=== PATIENT | female | born 1995 | race Hispanic/Latino ===

== ENCOUNTER 2016-09-28 13:42 | Emergency (ER) | payer OTHER ==
[~2016-09-28] VITALS: Ht 152.4 cm; Wt 57.7 kg
[2016-09-28 13:46] VITALS: BP 96/62; PULSE 82; RESP 14; O2SAT 98
== END 2016-09-28 14:05 | disposition left against medical advice (07) ==
LOC: SED 13:42
DX: Z53.21 Procedure and treatment not carried out due to patient leaving prior to being seen by health care provider (principal)

== ENCOUNTER 2017-02-09 02:02 | Inpatient (IN) | payer OTHER ==
[~2017-02-09] VITALS: Ht 142.2 cm; Wt 61.2 kg
[2017-02-09] MEDS ORDERED: Sodium Chloride LOK Flush 10 mL Syringe IVFLUSH PRN (02:50)
[2017-02-09] MEDS ORDERED: Hemorrhage Kit, Post Partum XX ONE (02:50)
[2017-02-09] MEDS ORDERED: Carboprost 250 mCg/mL Inj IM PRN (02:50)
[2017-02-09] MEDS ORDERED: fentaNYL-PF 50 mCg/mL 2 mL Inj IVPUSH PRN (02:50)
[2017-02-09] MEDS ORDERED: Oxytocin 30 Units/500 mL LR 30 UNITS in IV Premix 1 EACH IV PRN ×2 (02:50→07:55)
[2017-02-09] MEDS ORDERED: Methylergonovine 0.2 mg/mL Inj IM PRN (02:50)
[2017-02-09] MEDS ORDERED: Oxytocin 10 Unit/mL Inj IM PRN (02:50)
[2017-02-09 03:03] LABS: Mean Corpuscular Hemoglobin 25.1 pg (27.0-35.0)
[2017-02-09] MEDS: Lactated Ringer's 1,000 ML IV PRN ×2 (07:29→11:28)
[2017-02-09] MEDS ORDERED: EPHEDrine/NS 5 mg/mL 5 mL Syringe ONE (13:43)
[2017-02-09] MEDS ORDERED: fentaNYL 2 mCg/mL-Bupiv 0.125% 100 ML EPIDURAL SCH (15:35)
[2017-02-09] MEDS ORDERED: EPHEDrine Sulfate 50 mg/mL Inj IVPUSH PRN (15:35)
[2017-02-09] MEDS ORDERED: Atropine 1 mg/10 mL (Code) Syringe IVPUSH PRN (15:35)
[2017-02-09] MEDS ORDERED: Ondansetron 2 mg/mL 2 mL Inj IVPUSH PRN (15:35)
[2017-02-09] MEDS ORDERED: Phenylephrine/NS-PF 100 mCg/mL 5 mL Syringe IVPUSH PRN (15:35)
[2017-02-09] MEDS ORDERED: Lactated Ringer's 500 ML IV ONE (15:35)
--- NOTE | 2017-02-09 15:38 | PCM.HPANE ---
Patient Data Surgeon Admitting Provider:Tee Harvey MD Attending Provider:Tee Harvey MD Primary Care Physician:Tee Harvey MD Other Provider:Jose Felix Anesthesia Reason for Visit Term Labor Check TERM LABOR CHECK Ht/WT & BMI Body Mass Index Allergies Coded Allergies: No Known Allergies (Unverified , 09/28/16) Past Anesthesia History Anesthesia History: Denies:: Abnormal Airway, Anesthesia Reactions, Difficult Intubation, Fam Anesthesia Reaction, Fam Malignant Hypertherm, Malignant Hyperthermia Diabetes History Hx Diabetes?: No Medications Hypertension Medication: No Home Meds Incl Beta Ksenia: No History History of ENT Problems?: No HEENT History: Denies:: Abnormal Airway Cataracts Difficult Intubation Dysphagia Glaucoma Hearing Problem Sinus Problem TMJ Denture Type: None Teeth Condition: Within Normal Limits Hx of Heart Problems?: No Cardiovascular History: Denies:: AICD Abdominal Aortic Aneurism Atrial Fibrillation Cardiac Surgery Chest Pain Congestive Heart Failure Coronary Artery Disease Edema Heart Murmur Hypertension Irregular Heartbeat Pacemaker Peripheral Vascular Rheumatic Fever Thrombophlebitis Valvular Heart Disease Hx of Respiratory Problem?: No Respiratory History: Denies:: Asthma COPD Chest Surgery Cough Dyspnea Emphysema Hemoptysis Oxygen Administration Pneumonia Pulmonary Embolism Tuberculosis Use of C-PAP Machine Use of Inhalers / NEBS Hx Neurologic Problems?: No Hx of GI Problems?: No Hx of Problems?: No Female Hx: Positive for:: Currently Hx Musculoskeletal Problems?: No Hx of Psycho/Social Problems?: No Hx Surgeries?: No Hx Any Other Health Problems?: No Smoking Status: Never Smoker Have You Smoked inLast 12 mo: No Stop/Bang Treated for Sleep Apnea?: No Do You Have a CPAP Machine?: No LEIA Risk Assessment: Low Risk, <3 Yes Risk Assessment Category Category 1A: Patient has history of documented sleep apnea, and HAS NOT received any narcotic, sedative or anesthesia administration during this stay. Category 1B: Patient has history of documented sleep apnea, and HAS received any narcotic , sedative or anesthesia administration during this stay Category 2: Patient has SUSPECTED Obstructive Sleep Apnea, and HAS received any narcotic , sedative or anesthesia administration during this stay. Category 3: Patient has SUSPECTED Obstructive Sleep Apnea and HAS NOT received narcotic, sedative or anesthesia administration during this stay. Category 4: Outpatient in Procedural Areas with known sleep apnea or who screen positive for High Risk via the STOP/BANG questionnaire. Exam Exam General Appearance: Oriented X3 HEENT/AIRWAY: MP 2 Lungs: Normal Air Movement Heart: Regular Rate/Rhythm Meds/Labs/Diagnostics Labs Test 02/09/17 02:40 White Blood Count 8.8th/mm3 (3.8-10.1) Red Blood Count 4.23mil/mm3 (3.90-5.20) Hemoglobin 10.6g/dL (12.0-15.6) Hematocrit 33.0% (35.0-46.0) Mean Corpuscular Volume 78.0fL (81-100) Mean Corpuscular Hemoglobin 25.1pg (27.0-35.0) Mean Corpuscular Hemoglobin Concent 32.1% (32.0-37.0) Red Cell Distribution Width 17.3% (12.3-15.4) Platelet Count 263bil/L (150-400) Plan Impression Patient chart reviewed, patient interviewed and anesthestic plan with risks, benefits, and alternatives discussed, and informed consent obtained. ASA Physical Status: ASA2 Mod Systemic Disease Anesthetic Plan: Epidural Bene/Risks/Altern/Consents: Yes HP Complete Prior to Induction: Yes Kevon Muir MD February 09, 2017 15:37
[2017-02-09] MEDS: Lactated Ringer's 1,000 ML IV SCH ×2 (16:23→23:35)
[2017-02-09] MEDS: Sodium Chloride LOK Flush 10 mL Syringe IVFLUSH SCH (19:00)
[2017-02-09] MEDS ORDERED: Acetaminophen IV 1,000 MG in IV Premix 1 EACH IV ONE (22:50)
[2017-02-09] MEDS ORDERED: CeFAZolin Inj 2 GM in IV Premix 1 EACH IV ONE (23:40)
[2017-02-09] MEDS ORDERED: Sodium Citrate-Citric Acid 15 mL Solution PO SCH (23:40)
[2017-02-09] MEDS ORDERED: Sodium Citrate-Citric Acid 15 mL Solution ONE (23:41)
[2017-02-09] MEDS ORDERED: Morphine PF 1 mg/mL 10 mL Inj ONE (23:49)
[2017-02-10] MEDS ORDERED: EPHEDrine Sulfate 50 mg/mL Inj IVPUSH PRN (00:20)
[2017-02-10] MEDS ORDERED: Atropine 0.4 mg/mL Inj IV PRN (00:20)
[2017-02-10] MEDS ORDERED: Dexamethasone 4 mg/mL Inj IVPUSH PRN (00:20)
[2017-02-10] MEDS ORDERED: fentaNYL-PF 50 mCg/mL 2 mL Inj IVPUSH PRN (00:20)
[2017-02-10] MEDS ORDERED: Morphine PF 1 mg/mL 10 mL Inj EPIDURAL ONE (00:20)
[2017-02-10] MEDS ORDERED: Ondansetron 2 mg/mL 2 mL Inj IVPUSH PRN (00:20)
[2017-02-10] MEDS ORDERED: HYDROmorphone 1 mg/mL Inj IVPUSH PRN (00:20)
[2017-02-10] MEDS ORDERED: MetoCLOpramide 5 mg/mL 2 mL Inj IVPUSH PRN (00:20)
[2017-02-10] MEDS ORDERED: Phenylephrine/NS-PF 100 mCg/mL 5 mL Syringe IVPUSH PRN (00:20)
[2017-02-10] MEDS: Sodium Chloride LOK Flush 10 mL Syringe IVFLUSH SCH ×3 (00:30→16:30)
[2017-02-10] MEDS: Lactated Ringer's 1,000 ML IV SCH ×5 (01:07→17:07)
[2017-02-10] MEDS ORDERED: Oxytocin 10 Unit/mL Inj IM PRN (01:10)
[2017-02-10] MEDS ORDERED: Hemorrhage Kit, Post Partum XX ONE (01:10)
[2017-02-10] MEDS ORDERED: Methylergonovine 0.2 mg/mL Inj IM PRN (01:10)
[2017-02-10] MEDS ORDERED: HYDROcodone-APAP 5-325 mg Tablet PO PRN (01:10)
[2017-02-10] MEDS ORDERED: Acetaminophen IV 1,000 MG in IV Premix 1 EACH IV PRN (01:10)
[2017-02-10] MEDS ORDERED: Sodium Chloride LOK Flush 10 mL Syringe IVFLUSH PRN (01:10)
[2017-02-10] MEDS ORDERED: Oxytocin 30 Units/500 mL LR 30 UNITS in IV Premix 1 EACH IV PRN (01:10)
[2017-02-10] MEDS ORDERED: Carboprost 250 mCg/mL Inj IM PRN (01:10)
[2017-02-10] MEDS ORDERED: LANOlin HPA 7 Gm Ointment TOPICAL PRN (01:10)
--- NOTE | 2017-02-10 01:14 | PCM.ANEP1 ---
Post Anesthesia PACU Phase 1 Assessment Anesthetic Administered: Epidural Level of Alertness: Awake, talking Pain: No Nausea or Vomiting: No CV Function and Hydration: Yes Airway Device: Lungs: Normal Air Movement PACU Phase 2 Assessment Patient Instructions Provided: N/A Kevon Muir MD February 10, 2017 01:13
[2017-02-10] MEDS ORDERED: GENTAMICIN IV ONE (01:30)
[2017-02-10] MEDS ORDERED: SODIUM CHLORIDE 0.9% IV ONE (01:30)
--- NOTE | 2017-02-10 02:49 | HP ---
[address] [address] HISTORY AND PHYSICAL PATIENT: MINDY JACOBSON : 1995 MR#: [id number] ADMIT: 02/09/2017 JOB ID: [id number] HISTORY OF PRESENT ILLNESS: This is a 22-year-old female, 1, para 0, at 39 weeks , who presented to [facility] complaining of leaking of fluid. At [facility], she was noticed to be rupture of membrane with clear fluid and her cervix was 4 cm dilated at -2 station. She was michael irregularly and her heart tracing was category 1. This is a patient who has been having regular care at the [facility]. During her care, it was noticed that she has a history of positive chlamydia, treated, and tested for cure was negative afterwards. She was noticed in the 2nd trimester a marginal placenta previa which resolved in 3rd trimester. It was noticed that she had H and H of 9.5/29 in early . She had gonorrhea negative. She had a genital screening which was no increased risk. She has a HbA1c 5.6. Her blood type was B positive. Rubella immune. RPR negative. HIV negative. ALLERGIES: She has no known drug allergies. PAST MEDICAL HISTORY: She declined medical problems. She declined surgical history. OBSTETRICAL HISTORY: This is her first . SOCIAL HISTORY: Declined smoking, alcohol drinking and drug usage. PHYSICAL EXAMINATION: She is afebrile. Her pulse in normal range. Blood pressure in normal range. Cardiac: RR, no murmur. Pulmonary: Bilaterally clear. Abdomen is soft, nontender. Uterus with irregular contractions. Nontender uterus, well relaxed between contractions. Extremities: Nontender. Clear fluid. Cervix was 4-5 cm dilated, -2 station, and GBS negative. ASSESSMENT AND PLAN: A 22-year-old female, 1, para 0, at 39 weeks, rupture of membranes, in early labor. 1. We will admit her to [facility]. 2. The patient is offered epidural if she prefers to. 3. At this time, we will observe for labor progress and we will start her on Pitocin if needed. 4. Expect vaginal delivery.
--- NOTE | 2017-02-10 03:15 | OP ---
[address] [address] OPERATIVE REPORT PATIENT: MINDY JACOBSON : 1995 MR#: [id number] ADMIT: 02/09/2017 JOB ID: [id number] DATE OF SURGERY: SURGEON: Marifer Hanson MD STEEL MANAGER: Jaya Tran MD PREOPERATIVE DIAGNOSIS(ES): 1. Failure to descend. 2. Chorioamnionitis. POSTOPERATIVE DIAGNOSIS(ES): 1. Failure to descend. 2. Chorioamnionitis. INDICATION FOR PROCEDURE: This patient was admitted to the [facility] for rupture of membranes, early labor. After admission, she does not have strong contractions after observation and no progress of dilation. Pitocin started for induction. The patient was recommended to have epidural and she got her epidural for pain. Her pain is well controlled afterwards. Then, IUPC, FSE was placed to have a better monitor of her contractions and heart rate, and the patient gradually progressed to full dilation at 7 p.m. At that time, it was -1 to 0 station, and she does not have a strong urge to push. Instructed in pushing. She did not push efficiently, so she was allowed to labor down and the pushing started at 8:30. At that time, it was noticed that the head at a 0 station to +1 station, LOT with more deflexed head, but the patient has very good effort to push and she also has adequate contractions. After the patient pushed for 2 hours, I did pelvic examination again, and this time noticed still LOT position, deflexed head with no significant progress, and there was increased caput compared to 8:30. At this time, I discussed with the patient that with LOT position and a deflexed head, with 2 hours of good effort to push, there is no significant descent of head. At this time, the patient does not like to have a . I discussed with the patient that we will let her push for one more hour. If there is still no significant descent of head, the patient will consider about a section. Around then, the patient developed fever as high as 38.2, and decreased to 37.8, and the heart tracing baseline increased to 140s-160s. Still mostly has moderate variability. The patient was instructed to push and when she pushed into another hour, that is 3 hours of adequate contraction with good effort to push, still there is no significant descent of head. Discussed with the patient about the choice of the . The patient is still reluctant to have a , but after discussion, she understood the benefits, risks and willing to have . The patient understood there is risk of infection, bleeding, injury to the organs around the uterus, including but not limited to, the ureters, bladder, major vessels, nerves and bowels. Informed consent signed. PROCEDURE IN DETAIL: The patient was transferred to the operating room. After anesthesia was noted to be adequate, she was placed in dorsal supine position with a leftward tilt. She was prepared and draped in normal sterile fashion. A Pfannenstiel incision was placed with scalpel and this incision was carried through to the underlying fascia with a scalpel, and also blunt extension. A transverse incision was placed on fascia and extended both sharply and bluntly. Then, the underlying rectus muscle was dissected off. Then, the rectus muscle was in the midline. The underlying peritoneum identified and entered sharply, and then the peritoneum was extended both sharply and bluntly. The lower blade inserted. The vesicouterine peritoneum identified and entered sharply with Metzenbaum scissors. Then, the bladder flap created digitally. The lower blade reinserted to expose the lower segment of the uterus. A transverse incision was placed on the lower segment of the uterus and extended bilaterally bluntly. At this time, all instruments cleared from the field. The infant's head was delivered without significant difficulty. At this time, the head was delivered still at LOT position with more facing up. There was elongation of head, but more than half of the head still above her pelvis inlet. Then, the shoulder and chest delivered without difficulty. Delayed cord clamp was performed one minute after delivery. The infant was handed to the waiting associate professor of theology. At this time, regular cord blood collected. The placenta delivered spontaneously completely and examined with three-vessel cord. Then, the uterus was exteriorized. All debris and clots cleared from the field. The two corners was grasped by Allis forceps and this incision was closed by 0-Vicryl continuously with locked fashion. The second layer was placed for imbrication. At this time, the pelvic cavity was irrigated by warm normal saline. Bilateral ovaries and tubes examined. Both are normal. The uterus was returned back to the abdominal cavity. Hemostasis confirmed. Then, the fascia with reapproximated with 0-Vicryl continuously. The skin was reapproximated by 4-0 Monocryl on a Kiko needle. The subcutaneous connective tissue was not closed because of very thin layer, about only 1 cm. The patient tolerated the procedure well. All instrument, needles, laps, and gauzes counted correct twice. EBL during the procedure was 500 cc. Fluid given was 1.2 L. Urine output 100 cc. For this procedure, a assistant shift supervisor is very necessary for exposure and to have the procedure completed smoothly. ALONDRA
[2017-02-10] MEDS: Ampicillin Inj 2,000 MG in 0.9% Sodium Chloride 100 ML IV SCH ×3 (06:03→13:23)
[2017-02-10] MEDS: Clindamycin Inj 900 MG in IV Premix 1 EACH IV SCH ×2 (06:58→15:01)
--- NOTE | 2017-02-10 09:27 | PCM.PNOBPP ---
Subjective Date of Service February 10, 2017 Post : Primary Ceserean Delivery Visit History This is a 22-year-old female, 1, para 0, at 39 weeks , who presented to [facility] complaining of leaking of fluid. At [facility], she was noticed to be rupture of membrane with clear fluid and her cervix was 4 cm dilated at -2 station. She was michael irregularly and her heart tracing was category 1. After admission, she does not have strong contractions after observation and no progress of dilation. Pitocin started for induction. The patient was recommended to have epidural and she got her epidural for pain. Her pain is well controlled afterwards. Then, IUPC, FSE was placed to have a better monitor of her contractions and heart rate, and the patient gradually progressed to full dilation at 7 p.m. At that time, it was -1 to 0 station, and she does not have a strong urge to push. Instructed in pushing. She did not push efficiently, so she was allowed to labor down and the pushing started at 8:30. At that time, it was noticed that the head at a 0 station to +1 station, LOT with more deflexed head, but the patient has very good effort to push and she also has adequate contractions. After the patient pushed for 2 hours, I did pelvic examination again, and this time noticed still LOT position, deflexed head with no significant progress, and there was increased caput compared to 8:30. At this time, I discussed with the patient that with LOT position and a deflexed head, with 2 hours of good effort to push, there is no significant descent of head. At this time, the patient does not like to have a . I discussed with the patient that we will let her push for one more hour. If there is still no significant descent of head, the patient will consider about a section. Around then, the patient developed fever as high as 38.2, and decreased to 37.8, and the heart tracing baseline increased to 140s-160s. Still mostly has moderate variability. The patient was instructed to push and when she pushed into another hour, that is 3 hours of adequate contraction with good effort to push, still there is no significant descent of head. Discussed with the patient about the choice of the . The patient is still reluctant to have a , but after discussion, she understood the benefits, risks and waiting to have a . Subjective Patient this morning has no complaints. Lochia: Normal Pain Management: PO pain meds Gastrointestinal: Good Appetite, No N/V Labs Laboratory Tests 02/09/17 02:40: White Blood Count 8.8, Red Blood Count 4.23, Hemoglobin 10.6, Hematocrit 33.0, Mean Corpuscular Volume 78.0, Mean Corpuscular Hemoglobin 25.1, Mean Corpuscular Hemoglobin Concent 32.1, Red Cell Distribution Width 17.3, Platelet Count 263 Exam Vital Signs Vital Signs: VS reviewed, stable Exam Perineum: Intact Extremities: No cords Surgical Wound : Dressing & Drainage Status: Dry & Intact OB Post Assessment/Plan Problems: (1) Status post primary low transverse section Plan: Patient is doing well the plan to continue routine postoperative care. Status: Acute ICD Code: Z98.891 (2) Chorioamnionitis, delivered, current hospitalization Plan: At this time the patient is received 1 dose of ampicillin and clindamycin she is due for her second doses later today. After she receives a second dose of ampicillin and clindamycin plan to discontinue IV antibiotics and monitor signs and symptoms. Status: Acute ICD Code: O41.1290 Pain Evaluation: Adequate Pain Control Post plan: Continue routine post care Hammad Travis MD February 10, 2017 09:27
[2017-02-10] MEDS: oxyCODONE-Acetamin 5-325 mg Tablet PO PRN ×2 (16:58→22:01)
[2017-02-11] MEDS: Sodium Chloride LOK Flush 10 mL Syringe IVFLUSH SCH ×3 (00:30→16:30)
[2017-02-11] MEDS: Lactated Ringer's 1,000 ML IV SCH ×3 (01:07→17:07)
[2017-02-11] MEDS: oxyCODONE-Acetamin 5-325 mg Tablet PO PRN ×4 (06:19→19:30)
[2017-02-11 08:10] LABS: Mean Corpuscular Hemoglobin 24.9 pg (27.0-35.0); Mean Corpuscular Volume 79.5 fL (81-100)
--- NOTE | 2017-02-11 19:03 | PCM.PNOBPP ---
Subjective Date of Service February 11, 2017 Post : Primary Ceserean Delivery Lochia: Normal Pain Management: PO pain meds Gastrointestinal: Good Appetite, No N/V Labs Laboratory Tests 02/11/17 07:43: White Blood Count 15.6, Red Blood Count 2.97, Hemoglobin 7.4, Hematocrit 23.6, Mean Corpuscular Volume 79.5, Mean Corpuscular Hemoglobin 24.9, Mean Corpuscular Hemoglobin Concent 31.4, Red Cell Distribution Width 17.7, Platelet Count 212 Exam Vital Signs Vital Signs: VS reviewed, stable Exam Abdomen: Uterus is, Fundus firm Extremities: Edema 1+ Lungs: Clear to Auscultation Heart: Normal S1, Normal S2 General: Alert, Oriented X3 Surgical Wound : Incision General Appearence: Steri Strips, Sutures, Intact, Well Approximated, Incision Healing, No Erythemia, No Discharge, No Inflammatory Changes OB Post Assessment/Plan Assessment 22 Y POD#1 S/P PCD for arrest of descent and chorioamnionitis. Antibiotics (Ampicillin, Gent, Clindamycin) were D/Jake after 2 dose post operatively, no fever since before delivery. Chronic anemia with acute blood loss anemia, asymptomatic, orthostatic BP and HR WNL. Appropriate post op recovery. Anticipate discharge home tomorrow. Problems: (1) Status post primary low transverse section Status: Acute ICD Code: Z98.891 (2) Chorioamnionitis, delivered, current hospitalization Status: Acute ICD Code: O41.1290 Pain Evaluation: Adequate Pain Control Post plan: Continue routine post care Tee Harvey MD February 11, 2017 19:03
[2017-02-12] MEDS: oxyCODONE-Acetamin 5-325 mg Tablet PO PRN ×4 (00:51→16:27)
[2017-02-12] MEDS ORDERED: Lanolin TOPICAL (07:54)
[2017-02-12] MEDS ORDERED: FERR-83 PO (07:54)
[2017-02-12] MEDS ORDERED: ASCO250T7 PO (07:54)
[2017-02-12] MEDS ORDERED: IBUP-1827 PO (07:56)
[2017-02-12] MEDS ORDERED: OXYC1TAB24 PO (07:56)
[2017-02-12] MEDS ORDERED: DOCU-41 PO (07:56)
[2017-02-12 08:02] LABS: BASOPHILS % (AUTO) 0.1 % (0-3); EOSINOPHILS % (AUTO) 0.8 % (0-5); Mean Corpuscular Hemoglobin 25.5 pg (27.0-35.0); Mean Corpuscular Volume 79.8 fL (81-100); NEUTROPHILS % (AUTO) 73.7 % (40-74); Platelet Count 283 bil/L (150-400)
--- NOTE | 2017-02-12 08:08 | PCM.DIOB ---
Obstetrical Disch Instruction Dates of Hospitalization Date of Hospital Admission February 09, 2017 at 02:21 Providers Admitting Physician: Tee Harvey MD Primary Care Physician: Tee Harvey MD Attending Physician: Tee Harvey MD Discharge Diagnosis Problems: (1) Status post primary low transverse section Status: Acute ICD Code: Z98.891 (2) Chorioamnionitis, delivered, current hospitalization Status: Resolved ICD Code: O41.1290 (3) anemia Status: Acute ICD Code: O90.81 (4) Chronic anemia Status: Acute ICD Code: D64.9 Diet Discharge Diet: No restrictions Activity Discharge Activity-General: Pelvic Rest for 6 weeks (no sex, no tampon nor douching ), No lifting >10 pounds for 4-6 weeks Dressing and Incisional Care Hygiene: May shower, Wash incision with soap & water (then dry well), DO NOT soak incision under water, NO bathtub, hot tub or whirlpool, Perineal care, Dermoplast spray, Witch Kristen pads Follow Up Plan Follow-up Provider (F9): Tee Harvey MD Follow-up appointment: Weeks (2) Call your provider for: Fever or Chills, Shortness of breath, Heavy vaginal bleeding, Heavy bleeding, Epigastric pain, Excessive constipation, Vaginal discomfort, Red painful breasts, Other (headache, change in vision, nausea or vointing, leg swelling, change in color or leg pain. ) Tee Harvey MD February 12, 2017 08:08
--- NOTE | 2017-02-12 08:34 | PCM.DC.OB ---
Obstetrical Discharge Summary Date of Service February 12, 2017 Date of hospital admission February 09, 2017 at 02:21 Date of Discharge: Mar 15, 2017 Providers Admitting Physician: Flora Gr MD Primary Care Physician: Flora Gr MD Attending Physician: Flora Gr MD Diagnosis at Time of Discharge S/P primary CD Chorioamnionitis, resolved. anemia Chronic anemia Problems: (1) Status post primary low transverse section Status: Acute ICD Code: Z98.891 (2) Chorioamnionitis, delivered, current hospitalization Status: Resolved ICD Code: O41.1290 (3) anemia Status: Acute ICD Code: O90.81 (4) Chronic anemia Status: Acute ICD Code: D64.9 Brief History and Physical: 22 Y POD#2 S/P PCD for arrest of descent and chorioamnionitis, see operative report foe details. Antibiotics (Ampicillin, Gent, Clindamycin) were D/Jake after 2 dose post operatively, no fever since before delivery. Chronic anemia with acute blood loss anemia, asymptomatic, orthostatic BP and HR WNL. Appropriate post op recovery. Exam Vital Signs Vital Signs: VS reviewed, stable Exam Abdomen: Uterus is, Fundus firm Extremities: Edema 1+ Lungs: Clear to Auscultation Heart: Normal S1, Normal S2 General: Alert, Oriented X3 Surgical Wound : Incision General Appearence: Steri Strips, Sutures, Intact, Well Approximated, Incision Healing, No Erythemia, No Discharge, No Inflammatory Changes CBC Test 02/12/17 07:50 White Blood Count 14.8th/mm3 (3.8-10.1) Red Blood Count 3.22mil/mm3 (3.90-5.20) Hemoglobin 8.2g/dL (12.0-15.6) Hematocrit 25.7% (35.0-46.0) Mean Corpuscular Volume 79.8fL (81-100) Mean Corpuscular Hemoglobin 25.5pg (27.0-35.0) Mean Corpuscular Hemoglobin Concent 31.9% (32.0-37.0) Red Cell Distribution Width 17.6% (12.3-15.4) Platelet Count 283bil/L (150-400) Neutrophils (%) (Auto) 73.7% (40-74) Lymphocytes (%) (Auto) 19.7% (14-46) Monocytes (%) (Auto) 5.0% (4-12) Eosinophils (%) (Auto) 0.8% (0-5) Basophils (%) (Auto) 0.1% (0-3) Her blood type was B positive. Rubella immune. RPR negative. HIV negative. Hospital Course: Deposition: home. Discharge condition:stable. Diet Discharge Diet: No restrictions Activity Discharge Activity-General: Pelvic Rest for 6 weeks (no sex, no tampon nor douching ), No lifting >10 pounds for 4-6 weeks Dressing and Incisional Care Hygiene: May shower, Wash incision with soap & water (then dry well), DO NOT soak incision under water, NO bathtub, hot tub or whirlpool, Perineal care, Dermoplast spray, Witch Kristen pads Follow Up Plan Follow-up Provider (F9): Flora Gr MD Follow-up appointment: Weeks (2) Call your provider for: Fever or Chills, Shortness of breath, Heavy vaginal bleeding, Heavy bleeding, Epigastric pain, Excessive constipation, Vaginal discomfort, Red painful breasts, Other (headache, change in vision, nausea or vointing, leg swelling, change in color or leg pain. ) . ([Lanolin]) 2 APPLIC/GM OINT 1 APPLIC TOPICAL DIRECTED PRN PRN for breast care Prescribed by: FLORA GR MD Ascorbic Acid (Vitamin C) 250 Mg Tab.chew 250 MG PO TID Prescribed by: FLORA GR MD Docusate Sodium (Colace) 100 Mg Capsule 100 MG PO BID PRN PRN For Constipation Prescribed by: FLORA GR MD Ferrous Sulfate (Ferrous Sulfate) 325 Mg Tablet 325 MG PO TID Prescribed by: FLORA GR MD Ibuprofen (Ibuprofen) 600 Mg Tablet 600 MG PO Q6H PRN PRN For Pain Prescribed by: FLORA GR MD oxyCODONE-Acetaminophen 5-325 mg (oxyCODONE-Acetaminophen 5-325 mg) 1 Each Tablet 1-2 TAB PO Q4H PRN PRN For Pain Prescribed by: MD Wes MOODY Omaima A MD February 12, 2017 08:34
[2017-02-12 15:23] VITALS: BP 101/65; PULSE 72; RESP 15
--- NOTE | 2017-02-13 16:38 | PATH ---
SURGICAL PATHOLOGY Attending Physician:Tee Harvey CASE STATUS: Signed Out PATIENT NAME: MINDY JACOBSON PID: [id number] : 1995 DATE COLLECTED:02/10/2017 00:00 SPECIMEN: Placenta CLINICAL HISTORY: CHORIOAMNIONITIS, MATERNAL FEVER, TERM 1). PLACENTA FINAL DIAGNOSIS: Lim placenta: Placenta parenchyma: Weight 486 g. Chorionic villus maturation is slightly less mature than for stated gestational age. Mild inter and intravillous fibrin is present. No definite villitis identified. Umbilical cord: Length 28.5 cm. Cord inserts 3.2 cm from the placental disc margin. Three vessels present. Funisitis is present. Membranes: Ruptured 3.5 cm from the placental disc margin. Chorioamnionitis present. ICD10: O41.1 GROSS DESCRIPTION: The specimen is received in formalin, labeled with the patient's name and consists of an intact placenta and includes placental disc (486 g, 22.0 x 16.0 x 2.8 cm), umbilical cord (length-28.5 cm, diameter-1.0 x 0.6 cm) and membranes. The membranes are ruptured 3.5 cm from the free edge of the placenta and are semi-translucent. The umbilical cord is attached 3.2 cm from the edge of the placenta and contains 3 vessels. The surface is smooth and shiny with no evidence of meconium. The maternal surface is dark maroon with normal cotyledon formation. The placental disc is spongy with no hematomas, infarcts, nodules, masses, or lesions. Section code: (A) edge of placenta with membranes, umbilical cord; (B, C) placenta, 2 full thickness sections. 02/12/17 ICD-9 CODES: CPT CODES: 1: 13175 Electronically Signed Out Maria R Gtz MD [facility] [address], [place] [address] Technical component performed at [facility], [facility] [address], [place], [address]
== END 2017-02-12 18:44 | disposition home or self-care (01) | DRG 765 ==
LOC: FBCO 02:02 → FBC 02:21
PROVIDERS: ADMIT Obstetrics & Gynecology; ATTEND Obstetrics & Gynecology
PROC: 3E033VJ Introduction of Other Hormone into Peripheral Vein, Percutaneous Approach (ICD-10-PCS; 2017-02-10)
PROC: 10H073Z Insertion of Monitoring Electrode into Products of Conception, Via Natural or Artificial Opening (ICD-10-PCS; 2017-02-10)
PROC: 10D00Z1 Extraction of Products of Conception, Low, Open Approach (ICD-10-PCS; principal; 2017-02-10 00:08)
DX: O62.2 Other uterine inertia (principal); O41.1230 Chorioamnionitis, third trimester, not applicable or unspecified; Z3A.39 39 weeks gestation of pregnancy; Z37.0 Single live birth; O99.03 Anemia complicating the puerperium; D64.9 Anemia, unspecified

== ENCOUNTER 2017-03-13 12:36 | Emergency (ER) | payer OTHER ==
[~2017-03-13] VITALS: Ht 160 cm; Wt 61.4 kg
[~2017-03-13 12:36] MED LIST: ASCO250T7 PO; DOCU-41 PO; FERR-83 PO; IBUP-1827 PO; Lanolin TOPICAL; OXYC1TAB24 PO
[2017-03-13 12:58] VITALS: BP 107/71; PULSE 69; RESP 24; O2SAT 100
--- NOTE | 2017-03-13 13:15 | ED.REPORT ---
HPI-Abd Pain F Under 40 Date of Service Mar 13, 2017 ED Provider: Toby Gaitan DO Patient is a 22 year old female who had a c- section a month ago who presents to the ED complaining of upper abdominal pain onset this morning. Associated symptoms include weakness, nausea and vomiting. Patient states she has had normal bowel movements. She denies vaginal bleeding, fever, dysuria or constipation. The patient reports that she has not had sexual intercourse since the baby was born. Nursing Notes Stated Complaint: ABDOMINAL PAIN Chief Complaint: Female Abdominal Pain Nursing Notes Reviewed: Yes Allergies: Coded Allergies: No Known Allergies (Unverified , 03/13/17) Scheduled Ascorbic Acid (Vitamin C) 250 Mg Tab.chew 250 MG PO TID Famotidine (Pepcid) 40 Mg Tablet 40 MG PO BID Ferrous Sulfate (Ferrous Sulfate) 325 Mg Tablet 325 MG PO TID Scheduled PRN ([Lanolin]) 2 APPLIC/GM OINT 1 APPLIC TOPICAL DIRECTED PRN PRN for breast care Docusate Sodium (Colace) 100 Mg Capsule 100 MG PO BID PRN PRN For Constipation Ibuprofen (Ibuprofen) 600 Mg Tablet 600 MG PO Q6H PRN PRN For Pain Tramadol (Tramadol) 50 Mg Tablet 50 MG PO Q4H PRN PRN For Pain oxyCODONE-Acetaminophen 5-325 mg (oxyCODONE-Acetaminophen 5-325 mg) 1 Each Tablet 1-2 TAB PO Q4H PRN PRN For Pain General Time Seen by MD: 13:15 Chief Complaint Abdominal pain Hx Obtained From: Patient, Weld Inspector Arrived By: Walk-in Sudden in Onset?: Yes Onset Occurred: 1 - 4 hours ago Symptom Duration: Since onset Location: : Abdomen upper: Epigastric Quality: Painful Severity: Current: Severe Associated with: Reports: Nausea, Vomiting, Denies: Dysuria, Fever Recent Healthcare: Recent doctor visit, Recent hospitalization Similar Sx Previous: No Past Medical History Past Surgical History Reports: Smoking History Never Smoker Ambulatory Status Independent Review of Systems Constitutional: Reports: Weakness - generalized, Denies: Chills, Fever Respiratory: Denies: Non-productive cough, Shortness of breath GI: Reports: Abdominal pain, Nausea, Vomiting, Denies: Constipation Female: Denies: , Vaginal bleeding - abnl Complete sys rev & neg: except as marked. Physical Exam Initial Vital Signs Vital Signs (First) Date Time Temp Pulse Resp B/P Pulse Ox O2 Delivery O2 Flow Rate FiO2 03/13/17 12:58 35.6 69 24 107/71 100 Room Air Initial VS: Reviewed General/Constitutional: Awake, Alert Distress / Hydration: Positive: Distress moderate Behavior: Positive: Tearful Respiratory / Chest: Atraumatic, Breath sounds NL, Breath sounds = bilat, No respiratory distress Cardiovascular: Heart rate NL, Regular rhythm, Heart sounds NL Abdomen: Atraumatic, Soft, No guarding, No rebound Tenderness/Guarding/Rebound: Positive: Tender diffuse Back: Atraumatic, Full range of motion, No CVA tenderness Head / Eyes: Atraumatic, Normocephalic, PERRL, EOMI Skin: Atraumatic, Color NL, No rash, Warm, Dry Female Genitourinary: Multiple Cut Off Saw Operator present, External genitalia NL, No cervical motion tend, No foreign body, No adnexal mass, No adnexal tenderness Vaginal Bleeding / Discharge: Positive: Discharge bloody, Discharge clear clear drainage scant blood Neurologic: Oriented X3, Speech NL, No motor deficits, No sensory deficits Psychiatric: Affect NL, Mood NL Interpretation & Diagnostics Lab Results Interpretation Result Diagram: 03/13/17 1326 03/13/17 1326 Test 03/13/17 13:26 03/13/17 14:55 White Blood Count 6.7th/mm3 (3.8-10.1) Red Blood Count 4.39mil/mm3 (3.90-5.20) Hemoglobin 10.8g/dL (12.0-15.6) Hematocrit 33.6% (35.0-46.0) Mean Corpuscular Volume 76.5fL (81-100) Mean Corpuscular Hemoglobin 24.6pg (27.0-35.0) Mean Corpuscular Hemoglobin Concent 32.1% (32.0-37.0) Red Cell Distribution Width 18.6% (12.3-15.4) Platelet Count 315bil/L (150-400) Neutrophils (%) (Auto) 44.7% (40-74) Lymphocytes (%) (Auto) 46.5% (14-46) Monocytes (%) (Auto) 6.0% (4-12) Eosinophils (%) (Auto) 2.5% (0-5) Basophils (%) (Auto) 0.3% (0-3) Prothrombin Time 10.4sec (8.1-12.5) Prothromb Time International Ratio 0.97ratio Sodium Level 138mEq/L (134-144) Potassium Level 3.6mEq/L (3.5-5.2) Chloride Level 99mEq/L (97-108) Carbon Dioxide Level 19mmol/L (18-29) Blood Urea Nitrogen 14mg/dL (6-20) Creatinine 0.61mg/dL (0.57-1.00) Estimat Glomerular Filtration Rate 177mL/min (>59) Glucose Level 114mg/dL (60-99) Calcium Level 9.8mg/dL (8.5-10.1) Magnesium Level 1.9mg/dL (1.6-2.6) Total Bilirubin 0.2mg/dL (0.0-1.2) Aspartate Amino Transf (AST/SGOT) 31U/L (0-50) Alanine Aminotransferase (ALT/SGPT) 19U/L (0-32) Alkaline Phosphatase 140U/L (25-150) Total Protein 8.0g/dL (6.4-8.4) Albumin 4.3g/dL (3.4-5.0) Lipase 39U/L (13-60) Lactic Acid Level 2.0mmol/L (0.4-2.0) CT Abd / Pelvis Interpretation IMPRESSION: 1. Heterogeneous attenuation and enhancement within the uterus as above. This can be consistent with appearance. However, if clinical concern persists, ultrasound is recommended for additional evaluation. 2. No abscess or significant inflammatory change within the subcutaneous fat at the level of the section incision. Dictated by: Shavon Fitzpatrick M.D. on 03/13/2017 at 14:24 Approved by: Shavon Fitzpatrick M.D. on 03/13/2017 at 14:29 Interpretation / Wet Read by: Interpret - Radiologist Re-Eval/Medical Decision Med Decision/Clinical Course Med Decision/Clinical Course: Normal white count, afebrile, pain has completely resolved. After the patient is more calm, she relates that this is upper abdominal pain rather than lower. Her lactic acid was elevated of unclear significance though it has normalized after a liter of normal saline and there is no tachycardia, fever, leukocytosis or other unstable vital signs. This does not seem to represent severe or life-threatening sepsis. In terms of upper abdominal pain, she has not vomited while in the ER, pancreatitis seems unlikely. Her liver function tests are normal and she is not tender in the right upper quadrant, cholecystitis seems unlikely. Pelvic exam is reassuring, and she does not have cervical motion tenderness. I discussed the case with the patient's primary RN RADIATION who recommends close outpatient follow-up in her clinic. Discharge on tramadol, Pepcid, and Tylenol. Recommend following up in the next 2 days. Return and follow-up precautions given Re-Evaluation/Progress : Time of Eval: 15:31 Patient Status: Condition improved, Pain resolved Re-Evaluation/Progress Note: Patient reports that she is now feeling better and that the pain was epigastric in nature. Consultation : Referral / Consult Name: Tee Harvey MD Call Returned at: 15:30 Steno Typist: Will see in office Note: OBGYN, discussed case including laboratory studies physical exam, pelvic exam and CT imaging. Recommends outpatient follow-up in clinic in the next few days. Counseled Regarding: Diagnosis, Lab results, Need for follow-up, When/why to return to ED Discharge & Departure Primary Impression: Upper abdominal pain Disposition: Home Discharge Condition All VS Reviewed: Yes Condition: Stable Additional Instructions: Your upper abdominal pain may be related to your stomach. Take Pepcid, over-the -counter Tums as needed, tramadol and Tylenol for pain. Call your RN RADIATION today for close follow-up in the next 2-3 days, before the weekend comes. Return to the ER if you have high fever, pain over your uterine area, severe uncontrolled pain, or persistent vomiting. Gutierrez dolor de la parte superior abdominal podra estar relacionado con gutierrez est kitty. [place] Pepcid, sin receta mdica, Tums si fuera necesario. Tramadol y Tylenol para el dolor. Llame a gutierrez RN RADIATION hoy da para hacer [place] sridhar de seguimiento pronto, para que la revisen en los prximos 2-3 daily, antes que llegue el fin de semana. Vuelva a emergencia si le da fiebre abby, si le da dolor en la kavya uterina, si tiene dolor rosa maria que no se puede controlar, o si vomita persistentemente. GR/Weld Inspector Referrals: Tee Harvey MD (PCP) Marifer Hanson MD (Family) Scribkaryna Attestation Portions of this note were transcribed by Lily Alberto. I, Dr. Elenita Sands personally performed the history, physical exam and medical decision-making; I reviewed and confirmed the accuracy of the information in the transcribed note. Signed by: John Roque, 03/13/17 and 1330 copies to: Tee Harvey MD; Marifer Hanson MD, Timothy S DO Mar 13, 2017 13:15 Daisy Alberto Mar 13, 2017 13:30
[2017-03-13] MEDS ORDERED: 0.9% Sodium Chloride 1,000 ML IV ONE (13:21)
[2017-03-13] MEDS ORDERED: HYDROmorphone 0.5 mg/0.5 mL iSecure Syringe IVPUSH PRN (13:25)
[2017-03-13] MEDS ORDERED: Ketorolac 15 mg/mL Inj IVPUSH ONE (13:25)
[2017-03-13] MEDS ORDERED: Ondansetron 2 mg/mL 2 mL Inj IVPUSH PRN ×2 (13:25→16:25)
[2017-03-13 13:33] LABS: BASOPHILS % (AUTO) 0.3 % (0-3); EOSINOPHILS % (AUTO) 2.5 % (0-5); Mean Corpuscular Hemoglobin 24.6 pg (27.0-35.0); Mean Corpuscular Volume 76.5 fL (81-100); NEUTROPHILS % (AUTO) 44.7 % (40-74); Platelet Count 315 bil/L (150-400)
[2017-03-13 13:50] LABS: INR 0.97 ratio
[2017-03-13 13:57] LABS: Magnesium 1.9 mg/dL (1.6-2.6)
--- NOTE | 2017-03-13 14:30 | DRSVH ---
PROCEDURE: CT ABDOMEN AND PELVIS WITH CONTRAST ([id number]) INDICATIONS: abd pain post c section TECHNIQUE: After the administration of intravenous contrast, 5 mm thick sections acquired from the diaphragm to the symphysis. 5 mm coronal and sagittal reformats were acquired. For radiation dose reduction, the following was used: automated exposure control, adjustment of mA and/or kV according to patient siz e. COMPARISON: None. FINDINGS: Image quality: Excellent. ABDOMEN: Lung bases: Lung bases are clear. Heart size is normal. Solid organs: Liver and spleen are normal in size and enhancement. Gallbladder is unremarkable. Bi liary system is non dilated. Pancreas enhances normally. No adrenal nodules. Kidneys demonstrate n ormal size and enhancement, without hydronephrosis. Peritoneum and bowel: Bowel loops demonstrate normal wall thickness and caliber. No free fluid or a ir. Nodes and vessels: No retroperitoneal or mesenteric adenopathy by size criteria. Aorta and inferior vena cava are normal in size. Miscellaneous: No ventral hernias. Very minimal appearance of stranding within the subcutaneous fat at the level of the section incision appear to be most consistent with healing. PELVIS: Genitourinary: Bladder wall thickness is normal. The uterus demonstrates areas of heterogeneous att enuation. Miscellaneous: No inguinal hernias or adenopathy. Bones: No suspicious bony lesions. No vertebral body compression fractures. IMPRESSION: 1. Heterogeneous attenuation and enhancement within the uterus as above. This can be consistent with appearance. However, if clinical concern persists, ultrasound is recommended for additiona l evaluation. 2. No abscess or significant inflammatory change within the subcutaneous fat at the level of the cesa rean section incision. Dictated by: Shavon Fitzpatrick M.D. on 03/13/2017 at 14:24 Approved by: Shavon Fitzpatrick M.D. on 03/13/2017 at 14:29
[2017-03-13] MEDS ORDERED: LidocaineVisc 2%:Antacid 1:1 10 mL Syringe PO ONE (14:45)
[2017-03-13] MEDS ORDERED: TRAM50TA2 PO (16:01)
[2017-03-13] MEDS ORDERED: FAMO40TA72 PO (16:01)
[2017-03-13] MEDS ORDERED: Alum-Mag Hydrox-Simeth 30 mL Suspension PO PRN (16:25)
[2017-03-13 16:30] VITALS: PULSE 70; RESP 16; O2SAT 100
== END 2017-03-13 16:30 | disposition home or self-care (01) ==
LOC: SED 12:36
DX: O99.89 Other specified diseases and conditions complicating pregnancy, childbirth and the puerperium (principal); R10.10 Upper abdominal pain, unspecified; R53.1 Weakness; R11.2 Nausea with vomiting, unspecified; Z98.890 Other specified postprocedural states
CPT/HCPCS: 36415; 74177; 80053; 83605; 83690; 83735; 85025; 85610; 96361; 96374; 96375; 99285; J1885; J2405; J7030; Q9967